=== PATIENT | female | born 1960 | race Caucasian/White ===

== ENCOUNTER 2018-07-14 12:37 | Emergency (ER) | payer OTHER ==
[~2018-07-14] VITALS: Ht 154.9 cm; Wt 88.0 kg
[~2018-07-14 12:37] MED LIST: AUGMENTIN 500-1 EACH PO; GLYBURIDE-METF1 EACH; LISINOPRIL2.5 MG PO; LOVASTATIN10 MG; PROMETHAZINE HC25 M1 PO; ULTRAM50 MG PO
[2018-07-14] MEDS ORDERED: HYDROCODONE/APAP 7.5MG-325MG 1 EA TAB PO PRN (13:00)
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
[2018-07-14 15:20] VITALS: BP 115/69
== END 2018-07-14 15:30 | disposition home or self-care (01) ==
LOC: ER 12:37
DX: S60.311A Abrasion of right thumb, initial encounter (principal); S60.812A Abrasion of left wrist, initial encounter; S50.812A Abrasion of left forearm, initial encounter; V43.52XA Car driver injured in collision with other type car in traffic accident, initial encounter; Y92.488 Other paved roadways as the place of occurrence of the external cause
CPT/HCPCS: 70450; 71046; 99284

== ENCOUNTER 2022-07-09 12:58 | Inpatient (IN) | payer BC, OTHER ==
[~2022-07-09] VITALS: Ht 154.9 cm; Wt 88.0 kg
[2022-07-09] MEDS ORDERED: ACETAMINOPHEN 325 MG TAB PO ONE (14:00)
[2022-07-09 14:14] LABS: BASOPHILS % 0.1 % (0.0-1.0); HEMATOCRIT 35.6 % (34.2-44.1); HEMOGLOBIN 11.9 g/dL (12.0-16.0); LYMPHOCYTES % 5.6 % (18.0-39.1); MEAN CORPUSCULAR HEMOGLOBIN 30.8 pg (28-32); MEAN CORPUSCULAR HGB CONC 33.4 g/dL (31-35); MEAN CORPUSCULAR VOLUME 92.2 fL (81-99); MONOCYTES # (AUTO) 1.2 (0.2-0.8); MONOCYTES % 6.6 % (4.4-11.3); NEUTROPHILS # (AUTO) 15.9 (2.1-6.9); NEUTROPHILS % 87.1 % (38.7-80.0); PLATELET COUNT 185 x10e3/uL (140-360); RED BLOOD COUNT 3.86 x10e6/uL (3.6-5.1); RED CELL DISTRIBUTION WIDTH 13.4 % (11.7-14.4)
[2022-07-09 14:21] LABS: INR 1.01; PROTHROMBIN TIME 14.2 seconds (11.9-14.5)
[2022-07-09 14:22] LABS: PARTIAL THROMBOPLASTIN TIME 46.6 seconds (23.8-35.5)
[2022-07-09 14:26] LABS: CLARITY,URINE CLOUDY (CLEAR); COLOR,URINE YELLOW (YELLOW); KETONES,URINE 2+ (NEGATIVE); LEUKOCYTE ESTERASE ,URINE NEGATIVE (NEGATIVE); NITRITE,URINE NEGATIVE (NEGATIVE); PROTEIN,URINE DIPSTICK 1+ (NEGATIVE); URINE UROBILINOGEN 0.2 mg/dL (0.2 - 1)
[2022-07-09 14:35] LABS: ALBUMIN 2.7 g/dL (3.5-5.0); ALBUMIN/GLOBULIN RATIO 0.5 (0.8-2.0); ANION GAP 18.8 mmol/L (8-16); CALCIUM 9.5 mg/dL (8.4-10.2); CREATININE, SERUM 1.01 mg/dL (0.57-1.11); POTASSIUM 3.8 mmol/L (3.5-5.1)
[2022-07-09 14:38] LABS: BACTERIA,URINE MANY /HPF; EPITHELIAL CELLS,URINE FEW /LPF; WBC,URINE (MAN) 21-50 /HPF (0-5)
[2022-07-09] MEDS ORDERED: SODIUM CHLORIDE 0.9% 1000ML 1,000 ML IV ONE (15:15)
[2022-07-09] MEDS ORDERED: ASPIRIN 81 MG CHEW TAB PO ONE (15:30)
[2022-07-09] MEDS ORDERED: ONDANSETRON HCL INJ 2MG/ML 2ML 2 MG/ML VIAL IV PRN (15:30)
[2022-07-09] MEDS: SODIUM CHLORIDE FLUSH 10 ML SYR INJ PRN (15:45)
[2022-07-09 16:11] LABS: CREATINE KINASE MB 1.7 ng/mL (0-5.0)
[2022-07-09 21:00] VITALS: BP 122/58
[2022-07-09 23:43] LABS: CREATINE KINASE MB 2.3 ng/mL (0-5.0)
[2022-07-10] VITALS (7 sets, daily range): BP systolic 112–129; BP diastolic 55–65
[2022-07-10] MEDS: ASPIRIN 325 MG TAB EC PO SCH (09:51)
[2022-07-10] MEDS: SODIUM CHLORIDE FLUSH 10 ML SYR INJ PRN (09:51)
[2022-07-10 09:55] LABS: CREATINE KINASE MB 1.5 ng/mL (0-5.0)
[2022-07-10] MEDS: ACETAMINOPHEN 325 MG TAB PO PRN (11:52)
[2022-07-10] MEDS: ENOXAPARIN 30 MG/0.3 ML SYR SC SCH (17:24)
[2022-07-11] VITALS (7 sets, daily range): BP systolic 107–128; BP diastolic 56–66
[2022-07-11 06:56] LABS: BASOPHILS % 0.5 % (0.0-1.0); EOSINOPHILS # (AUTO) 0.2 (0.0-0.4); EOSINOPHILS % 2.4 % (0.0-6.0); HEMATOCRIT 36.9 % (34.2-44.1); HEMOGLOBIN 12.3 g/dL (12.0-16.0); LYMPHOCYTES # (AUTO) 1.7 (1.0-3.2); LYMPHOCYTES % 22.8 % (18.0-39.1); MEAN CORPUSCULAR HEMOGLOBIN 30.8 pg (28-32); MEAN CORPUSCULAR HGB CONC 33.3 g/dL (31-35); MEAN CORPUSCULAR VOLUME 92.3 fL (81-99); MONOCYTES # (AUTO) 0.8 (0.2-0.8); MONOCYTES % 10.7 % (4.4-11.3); NEUTROPHILS # (AUTO) 4.6 (2.1-6.9); NEUTROPHILS % 61.7 % (38.7-80.0); PLATELET COUNT 196 x10e3/uL (140-360); RED CELL DISTRIBUTION WIDTH 14.8 % (11.7-14.4)
[2022-07-11 07:14] LABS: CALCIUM 9.7 mg/dL (8.4-10.2); CREATININE, SERUM 0.74 mg/dL (0.57-1.11)
[2022-07-11] MEDS ORDERED: METFORMIN HCL 500 MG TAB PO SCH (07:30)
[2022-07-11] MEDS ORDERED: GLYBURIDE 2.5 MG TAB PO SCH (08:00)
[2022-07-11] MEDS: ASPIRIN 325 MG TAB EC PO SCH (08:36)
[2022-07-11] MEDS: ACETAMINOPHEN 325 MG TAB PO PRN (08:36)
[2022-07-11] MEDS ORDERED: LISINOPRIL 2.5 MG TAB PO SCH (09:00)
[2022-07-11] MEDS: ENOXAPARIN 30 MG/0.3 ML SYR SC SCH (16:40)
[2022-07-11] MEDS: METFORMIN HCL 500 MG TAB PO SCH (16:40)
[2022-07-11] MEDS: GLYBURIDE 2.5 MG TAB PO SCH (16:40)
[2022-07-11] MEDS ORDERED: ATORVASTATIN 20 MG TAB PO SCH (21:00)
[2022-07-12] VITALS: BP 121/63
[2022-07-12 04:00] VITALS: BP 123/60
[2022-07-12 06:44] LABS: CHOL/HDL RATIO 6.9 (3.0-3.6)
[2022-07-12 08:10] VITALS: BP 123/60
[2022-07-12 08:11] VITALS: BP 137/74
[2022-07-12] MEDS ORDERED: ASPIRIN ENTERI325 MG PO (08:32)
[2022-07-12] MEDS ORDERED: CEFDINIR300 MG PO (08:39)
[2022-07-12] MEDS ORDERED: ZITHROMAX500 MG PO (08:39)
[2022-07-12] MEDS ORDERED: LISINOPRIL 2.5 MG TAB PO SCH (09:00)
[2022-07-12] MEDS: ASPIRIN 325 MG TAB EC PO SCH (09:30)
[2022-07-12] MEDS: METFORMIN HCL 500 MG TAB PO SCH (09:31)
[2022-07-12] MEDS: GLYBURIDE 2.5 MG TAB PO SCH (09:31)
[2022-07-12] MEDS ORDERED: ONDANSETRON HCL 4 MG ORAL DISINTEGRATING TAB PO PRN (10:15)
[2022-07-12 11:25] VITALS: BP 137/59
[2022-07-13] MEDS ORDERED: AZITHROMYCIN 250 MG TAB PO SCH (09:00)
== END 2022-07-12 11:32 | disposition home or self-care (01) | DRG 871 ==
LOC: ER 13:19 → ERHOLD 15:32 → MED/SURG2 20:14
PROVIDERS: ADMIT Internal Medicine; ATTEND Internal Medicine
DX: A41.51 Sepsis due to Escherichia coli [E. coli] (principal); I21.A1 Myocardial infarction type 2; J18.9 Pneumonia, unspecified organism; N12 Tubulo-interstitial nephritis, not specified as acute or chronic; E11.69 Type 2 diabetes mellitus with other specified complication; E78.5 Hyperlipidemia, unspecified; Z20.822 Contact with and (suspected) exposure to COVID-19
CPT/HCPCS: 36415; 71045; 80048; 80053; 80061; 81001; 82550; 82553; 82948; 83605; 84484; 85025; 85610; 85730; 87040; 87086; 87186; 87400; 93005; 99283; J0456; J0696; J1650; J7030; J7050

== ENCOUNTER → 2022-07-22 | Outpatient (CLI) | payer BC ==
[~2022-07-22] MED LIST changes: +ASPIRIN ENTERI325 MG PO; +CEFDINIR300 MG PO; +ZITHROMAX500 MG PO
== END ==
LOC: RAD 12:55
PROVIDERS: ATTEND Internal Medicine Critical Care Medicine
DX: J18.9 Pneumonia, unspecified organism (principal)
CPT/HCPCS: 71046